=== PATIENT | female | born 1995 | race Caucasian/White ===

== ENCOUNTER 2017-04-21 15:08 | Emergency (ER) | payer OTHER ==
[~2017-04-21] VITALS: Ht 162.6 cm; Wt 55.0 kg
[~2017-04-21 15:08] MED LIST: BCPILLS PO; NAPR1TAB9 PO; PHEN-905 PO
[2017-04-21 15:18] VITALS: TEMP 36.9; Ht 162.6 cm; Wt 55.0 kg
[2017-04-21] MEDS ORDERED: ONDANSETRON INJ 2 MG/ML 2 ML VIAL IV STA (15:46)
[2017-04-21] MEDS ORDERED: RANITIDINE HCL 50 MG/100 ML D5W IV STA (15:46)
[2017-04-21] MEDS ORDERED: MoRPHine SULFATE 4 MG/ML 1 ML CARP\\VIAL IV STA ×2 (15:46→16:49)
[2017-04-21] MEDS ORDERED: SODIUM CHLORIDE 0.9% 1000ML 1,000 ML IV ONE (16:00)
[2017-04-21 16:17] LABS: BASO ABS # 0.01 K/uL (0-0.2); COMPLETE YES; HEMATOCRIT 38.6 % (37-47); IG% 0.2 %; LYMPH % 3.7 %; LYMPH ABS # 0.77 K/uL (1.2-3.4); MEAN CELL VOLUME 79.9 fL (80-100); MEAN CORPUSCULAR HEMOGLOBIN 26.7 pg (25-34); MEAN CORPUSCULAR HGB CONC 33.4 g/dl (32-36); MEAN PLATELET VOLUME 9.9 fL (7.4-10.4); MONO % 3.5 %; NEUT % 92.6 %; PLATELET COUNT 220 K/uL (130-400); RED BLOOD COUNT 4.83 M/uL (4.2-5.4); WHITE BLOOD COUNT 21.01 K/uL (4.8-10.8)
[2017-04-21 16:33] LABS: BUN/CREATININE RATIO 13.1 (10-20); CALCIUM 9.7 mg/dl (8.5-10.1); CREATININE 0.81 mg/dl (0.60-1.20)
[2017-04-21 16:36] LABS: ALB/GLOB RATIO 1.2 (0.9-2)
[2017-04-21] MEDS ORDERED: OPTIRAY 320 IV PRN (16:45)
[2017-04-21] MEDS ORDERED: POTASSIUM CHLORIDE 10 MEQ / 100ML WTR IV STA (16:48)
[2017-04-21 17:45] LABS: URINE APPEARANCE CLEAR (CLEAR); URINE BILIRUBIN NEG (NEG); URINE COLOR YELLOW; URINE EPITHELIAL CELL AUTO >30 /lpf (0-5); URINE NITRITE NEG (NEG); URINE PH 5.5 (4.5-7.5); URINE SPECIFIC GRAVITY 1.026 (1.000-1.030); UROBILINOGEN NEG (NEG); ZZUR CULT IF INDIC CLEAN CATCH YES
[2017-04-21 17:50] LABS: MANUAL MICROSCOPIC REQUIRED? NO; REVIEW REQ? NO
[2017-04-21 17:59] LABS: PREG INTERNAL NEGATIVE QC NEG CLEAR BACKGROUND; PREG INTERNAL POSITIVE QC POS CONTROL LINE
--- NOTE | 2017-04-21 18:17 | DIAGNOSTIC IMAGING REPORT ---
ABD/PELVIS IV CONTRAST ONLY CT DOSE: 230.95 mGycm HISTORY: Nausea. Vomiting. diffuse abd pain with N/V TECHNIQUE: Multiaxial CT images of the abdomen and pelvis were performed following the use of intravenous contrast. A dose lowering technique was utilized adhering to the principles of ALARA. COMPARISON STUDY: None. FINDINGS: Lung bases are clear. Liver spleen and pancreas are unremarkable. Kidneys enhance uniformly. There is no evidence for hydronephrosis. Small bowel pattern is considered nonobstructive. There is suggestion of mild wall edema of the bulk of the colon. There is trace amount of pericolonic infiltrative change. There is a small to moderate amount of free fluid within the pelvic cul-de-sac. No evidence for abscess collection or obstruction is present. Bladder is midline. There are no contained calcifications. Inguinal regions are unremarkable. IMPRESSION: 1. Mild nonspecific colitis. 2. Moderate free fluid within the pelvic cul-de-sac presumably reactive. 3. No evidence for abscess collection or obstructive change. The above report was generated using voice recognition software. It may contain grammatical, syntax or spelling errors. Electronically signed by: Geoffrey Jama M.D. 04/21/2017 6:16 PM Dictated Date/Time: 04/21/2017 6:12 PM
[2017-04-21 18:33] VITALS: BP 116/73; PULSE 71; O2SAT 99
[2017-04-21] MEDS ORDERED: ONDA4TAB46 PO (18:34)
--- NOTE | 2017-04-21 23:37 | EMERGENCY ROOM VISIT NOTE ---
ED Visit Note First contact with patient: 15:40 Chief Complaint: I'm having severe abdominal pain and nausea and vomiting. History of Present Illness: Ms. Roman is a 21 year-old female who ambulates into the ED complaining of diffuse abdominal pain and nausea/vomiting. Historically patient reports last summer she was diagnosed with gastritis and started on Pepcid. She reports since that diagnosis she intermittently has low level diffuse abdominal pain and intermittent nausea but no vomiting. Patient reports she was feeling well last night and went out and started drinking a moderate amount of alcohol with caffeine. Then this morning, approximately 7 hours ago, she started developing severe diffuse abdominal pain with nausea/vomiting. She reports since that time the pain has been constant but has slightly waxed and waned in intensity. She describes her pain as a diffuse cramping sensation with slight prominence just left of the epigastric area. She rates her discomfort 9/10. Her pain is nonradiating. Her pain worsens whenever she attempts to eat or drink anything. She has not identified any alleviating factors related to the pain. She has not taken any medications for pain prior to arrival at the hospital. Associated with her pain she reports she has been having chills but no flavio fevers, nausea and vomiting and over the last couple hours as noted some tingling in her hands, feet and around her mouth. Patient denies sweats, skin eruptions, skin color changes, upper respiratory tract symptoms, shortness of breath, chest pain, diarrhea, constipation, rectal bleeding, black/tarry stools, urinary symptoms, hematuria, vaginal bleeding, vaginal discharge, back/flank pain. Review of Systems: As noted above in history of present illness. All body systems were reviewed and found to be negative as noted above. Past Medical History: As previously noted. Current Medications: Pepcid. Allergies to Medications: Patient denies. Social History: Patient is [employer] student; she feels safe in her home environment; she denies tobacco use and admits to alcohol use. Physical Examination: Vital Signs: Date Time Temp Pulse Resp B/P (MAP) Pulse Ox O2 Delivery O2 Flow Rate FiO2 04/21/17 18:33 71 18 116/73 99 Room Air 04/21/17 17:11 77 18 120/76 100 Room Air 04/21/17 15:18 36.9 80 20 114/60 100 GENERAL: 21-year-old female in moderate distress due to pain, nontoxic-appearing , afebrile and hemodynamically stable. NEUROLOGICAL: Awake, alert and oriented to person, place and time. Answering questions appropriately and following commands. Normal gait. Good hand eye coordination. SKIN: Warm, dry and pink. No soft tissue eruptions or trauma noted. HEENT: Atraumatic and normocephalic. PERRLA. Sclera white and conjunctiva pink. Oral cavity moist and pink. Pharynx is nonerythematous or edematous. Speech normal. No lymphadenopathy. Trachea midline. No jugular venous distention. BACK: No tenderness over the bony spine. No CVA tenderness. THORAX: Lungs sounds are clear to auscultation and equal bilaterally with symmetrical chest wall. No wheezing, rales or rhonchi. No crepitus, tenderness , subcutaneous air or deformities noted. HEART: Regular rate and rhythm. No gallops, rubs or murmurs are appreciated. ABDOMEN: Flat and soft with diffuse tenderness in all quadrants and prominence in the left upper quadrant just lateral to the epigastric area. Positive bowel sounds in all quadrants. No guarding, rigidity or organomegaly. EXTREMITIES: Moves all extremities well on command and with purpose. All distal neurovascular statuses are intact and equal bilaterally. ED Course: Patient is assessed as noted above. Patient's medication list was reviewed. Laboratory Testing: Test 04/21/17 16:00 04/21/17 17:25 Range/Units White Blood Count 21.01 4.8-10.8 K/uL Red Blood Count 4.83 4.2-5.4 M/uL Hemoglobin 12.9 12.0-16.0 g/dL Hematocrit 38.6 37-47 % Mean Corpuscular Volume 79.9 80-100 fL Mean Corpuscular Hemoglobin 26.7 25-34 pg Mean Corpuscular Hemoglobin Concent 33.4 32-36 g/dl Platelet Count 220 130-400 K/uL Mean Platelet Volume 9.9 7.4-10.4 fL Neutrophils (%) (Auto) 92.6 % Lymphocytes (%) (Auto) 3.7 % Monocytes (%) (Auto) 3.5 % Eosinophils (%) (Auto) 0.0 % Basophils (%) (Auto) 0.0 % Neutrophils # (Auto) 19.44 1.4-6.5 K/uL Lymphocytes # (Auto) 0.77 1.2-3.4 K/uL Monocytes # (Auto) 0.74 0.11-0.59 K/uL Eosinophils # (Auto) 0.00 0-0.5 K/uL Basophils # (Auto) 0.01 0-0.2 K/uL RDW Standard Deviation 41.8 36.4-46.3 fL RDW Coefficient of Variation 14.4 11.5-14.5 % Immature Granulocyte % (Auto) 0.2 % Immature Granulocyte # (Auto) 0.05 0.00-0.02 K/uL Sodium Level 142 136-145 mmol/L Potassium Level 3.0 3.5-5.1 mmol/L Chloride Level 111 98-107 mmol/L Carbon Dioxide Level 14 21-32 mmol/L Anion Gap 17.0 3-11 mmol/L Blood Urea Nitrogen 11 7-18 mg/dl Creatinine 0.81 0.60-1.20 mg/dl Est Creatinine Clear Calc Drug Dose 94.9 ml/min Estimated GFR () 120.3 Estimated GFR (Non- 103.8 BUN/Creatinine Ratio 13.1 10-20 Random Glucose 131 70-99 mg/dl Calcium Level 9.7 8.5-10.1 mg/dl Total Bilirubin 0.4 0.2-1 mg/dl Aspartate Amino Transf (AST/SGOT) 12 15-37 U/L Alanine Aminotransferase (ALT/SGPT) 18 12-78 U/L Alkaline Phosphatase 62 45-117 U/L Total Protein 8.7 6.4-8.2 gm/dl Albumin 4.8 3.4-5.0 gm/dl Globulin 3.9 2.5-4.0 gm/dl Albumin/Globulin Ratio 1.2 0.9-2 Lipase 69 73-393 U/L Human Chorionic Gonadotropin, Qual NEG NEG Urine Color YELLOW Urine Appearance CLEAR CLEAR Urine pH 5.5 4.5-7.5 Urine Specific [place] 1.026 1.000-1.030 Urine Protein TRACE NEG Urine Glucose (UA) NEG NEG Urine Ketones 4+ NEG Urine Occult Blood NEG NEG Urine Nitrite NEG NEG Urine Bilirubin NEG NEG Urine Urobilinogen NEG NEG Urine Leukocyte Esterase NEG NEG Urine WBC (Auto) 1-5 0-5 /hpf Urine RBC (Auto) 0-4 0-4 /hpf Urine Hyaline Casts (Auto) 1-5 0-5 /lpf Urine Epithelial Cells (Auto) >30 0-5 /lpf Urine Bacteria (Auto) 1+ NEG Urine Test NEG NEG Urine Culture: Pending IV Contrast Abdominal/Pelvic CT: Was reviewed by myself and read by the radiologist and shows mild nonspecific colitis with moderate free fluid within the cul-de-sac. No evidence of abscess collection or obstructive changes. Patient was hydrated with normal saline and she received a total of 8 mg of morphine IV, 4 mg of Zofran IV, 50 mg of ranitidine IV and 10 mEq of potassium chloride IV. Patient was reassessed multiple times during her stay in the emergency department. Patient's case was reviewed with Dr. James; we agreed on diagnostic approach, treatment, disposition and plan. Patient was educated about today's findings and instructed on her treatment plan ; she verbalized understanding and agreement with this plan. Clinical Impression: Mild colitis. Gastritis. Hypokalemia. Mild dehydration. Decision-Making: Initially my differential diagnosis I considered soft otitis, gastric reflux, perforated viscus, hepatitis, pancreatitis, peritonitis and other causes. Disposition: Patient discharged home in stable condition accompanied by male friend; prior to departure she was reassessed at and subjectively reported that she was pain and symptom-free. Prior to discharge she was given soda and crackers and was able to tolerate this without return of nausea/vomiting. Plan: Patient was encouraged use 650 mg of acetaminophen every 6 hours as needed for pain. Patient was encouraged to continue her prescribed medications. Patient was prescribed Zofran 4 mg every 6 hours as needed for nausea/vomiting. Patient was encouraged to stay well-hydrated with increased clear fluids. Patient was encouraged to increase her potassium with oranges and pineapple as tolerated. Patient is encouraged use a bland diet for the next 48 hours and avoid stomach irritants including alcohol, tobacco, caffeine, spicy food, fatty food, mints and NSAID medications. Patient was encouraged to follow-up with [facility] for recheck and reevaluation of her potassium. Patient is encouraged to follow-up with gastroenterology for specialty care and treatment. Patient is encouraged return ED for worsening/uncontrolled pain, uncontrolled nausea/vomiting, fevers, bloody vomitus, bloody stools or any new/concerning symptoms. Patient was encouraged to follow-up with personal physician for recheck in 1-2 days. Patient was encouraged return the ED for worsening symptoms, fevers, or any new/ concerning symptoms.
== END 2017-04-21 19:06 | disposition home or self-care (01) ==
LOC: C.EDB 15:09 → C.EDC 19:06
DX: K52.9 Noninfective gastroenteritis and colitis, unspecified (principal); K29.70 Gastritis, unspecified, without bleeding; E87.6 Hypokalemia; E86.0 Dehydration